=== PATIENT | male | born 1985 ===

== ENCOUNTER 2017-03-26 07:00 | Day surgery (SDC) | payer BC ==
[2017-03-26 07:25] VITALS: BMI 20.5
[2017-03-26] MEDS ORDERED: Propofol 10 mg/ml Inj (20 ML) ONE (09:30)
[2017-03-26] MEDS ORDERED: Lactated Ringer's 500 ML IV SCH (09:45)
[2017-03-26 11:09] VITALS: O2SAT 100
[2017-03-26 11:22] VITALS: BP 103/63; PULSE 70; RESP 17; TEMP 97.2
== END 2017-03-26 11:22 | disposition home or self-care (01) ==
LOC: C.ENDO 07:00
PROVIDERS: ATTEND Internal Medicine Gastroenterology
DX: K12.0 Recurrent oral aphthae (principal); R10.13 Epigastric pain; R63.4 Abnormal weight loss; K29.70 Gastritis, unspecified, without bleeding
CPT/HCPCS: 43239; 45380; 88305; J2704; J3010; J7120